=== PATIENT | female | born 1980 | race Caucasian/White ===

== ENCOUNTER 2017-04-13 15:25 | Emergency (ER) | payer BC, OTHER ==
[~2017-04-13] VITALS: Ht 160 cm; Wt 69.0 kg
[~2017-04-13 15:25] MED LIST: ALYACEN1 EACH PO; ATRALIN45 GM TP; BIOTIN10 MG PO; CALCIUM CARB1 TABLET PO; CALTRATE 6001 TABLE1 PO; CENTRUM COMPLE1 EACH PO; CENTRUM SILV1 TABLET PO; CYMBALTA60 MG PO; DESYREL100 MG PO; EPIPEN JR.0.15 MG/0. IM; KLONOPIN1 MG PO; KLONOPIN2 MG PO; LEVAQUIN750 MG PO; LORCET 5-325 M1 EACH PO; MELATONIN5 M1 PO; OXYCODONE HCL5 MG GT; OXYCODONE HCL5 MG PO; PERCOCET 5/31 TABLET PO; PROAIR HFA8.5 GM IH; PULMICORT0.5 MG/21 IH; SEROQUEL300 MG PO; SODIUM BICARBO325 MG PO; Sodium Bicarbonate PO; ULTRAM50 MG PO; XOPENEX1.25 MG/3 IH; [UNRECOGNIZED DRUG - OTHER] TP
[2017-04-13 20:40] VITALS: BP 124/80
== END 2017-04-13 20:41 | disposition home or self-care (01) ==
LOC: EME 15:25
PROC: 0D20XUZ Change Feeding Device in Upper Intestinal Tract, External Approach (ICD-10-PCS; principal; 2017-04-13)
DX: Z43.1 Encounter for attention to gastrostomy (principal); Z93.2 Ileostomy status; K21.9 Gastro-esophageal reflux disease without esophagitis; J44.9 Chronic obstructive pulmonary disease, unspecified
CPT/HCPCS: 74000; 99281; 99284; J7512

== ENCOUNTER 2017-05-30 14:58 | Emergency (ER) | payer BC, OTHER ==
[~2017-05-30] VITALS: Ht 160 cm; Wt 67.2 kg
[~2017-05-30 14:58] MED LIST changes: +CALTRATE 600 +1 EAC1 PO; +CENTRUM SILVER1 EAC4 PO; +MELATONIN10 M2 PO; +TRAZODONE HCL100 MG PO; +WELLBUTRIN SR200 MG PO
[2017-05-30 17:18] LABS: HEMATOCRIT 41.3 % (36.0-46.0); MCH 31.6 PG (29.0-34.0); MCHC 34.1 G/DL (30.0-36.0); MCV 92.6 FL (83-99); MEAN PLAT.VOLUME 8.7 uM^3 (9.5-12.4); PLATELET COUNT 214 K/uL (156-360); RBC DIS.WIDTH-CV 11.9 % (11.8-14.6); RBC DIS.WIDTH-SD 40.5 % (39-53); RED BLOOD COUNT 4.46 M/uL (3.80-5.20); WHITE BLOOD COUNT 7.9 K/uL (4.1-10.2)
[2017-05-30 17:27] LABS: CHLORIDE 104 mEq/L (99-109); POTASSIUM 4.9 mEq/L (3.7-5.4); SODIUM 138 mEq/L (136-147)
[2017-05-30 17:29] LABS: GLUCOSE 96 mg/dL (70-99)
[2017-05-30 17:30] LABS: ANION GAP 8 MEQ/L (2-14)
[2017-05-30 17:33] LABS: GFR ESTIMATE (CALCULATED) > 59 mL/min/
[2017-05-30 17:34] LABS: UREA NITROGEN (BUN) 8 mg/dL (9-23)
[2017-05-30 17:42] LABS: QUANTITATIVE HCG < 4.0 MIU/ML
[2017-05-30] MEDS ORDERED: NORCO 5/3251 TABLET PO (18:37)
[2017-05-30] MEDS ORDERED: KEFLEX500 MG PO (18:37)
[2017-05-30 19:36] VITALS: BP 121/85
== END 2017-05-30 19:37 | disposition home or self-care (01) ==
LOC: EME 14:58
PROVIDERS: Nurse Practitioner Family
DX: L03.311 Cellulitis of abdominal wall (principal); K94.22 Gastrostomy infection; J44.9 Chronic obstructive pulmonary disease, unspecified; K21.9 Gastro-esophageal reflux disease without esophagitis; Q87.2 Congenital malformation syndromes predominantly involving limbs; Z93.2 Ileostomy status
CPT/HCPCS: 74000; 80048; 83605; 84702; 85027; 99281; 99285

== ENCOUNTER → 2017-06-01 | Outpatient (CLI) | payer BC, OTHER ==
[~2017-06-01] MED LIST changes: +KEFLEX500 MG PO; +NORCO 5/3251 TABLET PO
== END | disposition home or self-care (01) ==
LOC: RAD 14:57
PROC: 0DH67UZ Insertion of Feeding Device into Stomach, Via Natural or Artificial Opening (ICD-10-PCS; principal; 2017-06-01)
DX: K94.23 Gastrostomy malfunction (principal)
CPT/HCPCS: 74176; C1769

== ENCOUNTER → 2017-06-17 | Outpatient (CLI) | payer BC, OTHER | END | disposition home or self-care (01) | LOC: RAD 13:33 | PROC: 0DH87UZ Insertion of Feeding Device into Small Intestine, Via Natural or Artificial Opening (ICD-10-PCS; principal; 2017-06-17) | DX: K94.20 Gastrostomy complication, unspecified (principal) | CPT/HCPCS: C1769 ==

== ENCOUNTER 2017-10-05 17:20 | Emergency (ER) | payer BC, OTHER ==
[~2017-10-05] VITALS: Ht 160 cm; Wt 75.7 kg
[2017-10-05 18:26] LABS: HEMATOCRIT 38.3 % (36.0-46.0); HEMOGLOBIN 13.1 G/DL (11.9-15.5); MCH 31.6 PG (29.0-34.0); MCHC 34.2 G/DL (30.0-36.0); MCV 92.3 FL (83-99); PLATELET COUNT 262 K/uL (156-360); RBC DIS.WIDTH-CV 11.5 % (11.8-14.6); RBC DIS.WIDTH-SD 38.9 % (39-53); RED BLOOD COUNT 4.15 M/uL (3.80-5.20); WHITE BLOOD COUNT 8.3 K/uL (4.1-10.2)
[2017-10-05 18:37] LABS: ALBUMIN 4.1 g/dL (3.2-4.8); CHLORIDE 103 mEq/L (99-109); SODIUM 136 mEq/L (136-147)
[2017-10-05 18:39] LABS: GLUCOSE 94 mg/dL (70-99)
[2017-10-05 18:40] LABS: TOTAL PROTEIN 7.3 g/dL (6.4-8.3)
[2017-10-05 18:41] LABS: TOTAL BILIRUBIN 0.4 mg/dL (0.0-1.0)
[2017-10-05 18:43] LABS: ALKALINE PHOSPHATASE 89 IU/L (3-129); CREATININE 0.7 mg/dL (0.6-1.3); GFR ESTIMATE (CALCULATED) > 59 mL/min/
[2017-10-05 18:44] LABS: UREA NITROGEN (BUN) 10 mg/dL (9-23)
[2017-10-05 18:45] LABS: AST (GOT) 18 IU/L (2-34); DIRECT BILIRUBIN 0.2 mg/dL (0.0-0.3)
[2017-10-05 18:46] LABS: ALT (GPT) 7 IU/L (3-49); LIPASE 76 U/L (1.0-51.0)
[2017-10-06 00:18] VITALS: BP 135/92
== END 2017-10-06 00:19 | disposition home or self-care (01) ==
LOC: EME 17:20
PROVIDERS: Emergency Medicine
DX: R10.84 Generalized abdominal pain (principal); K94.09 Other complications of colostomy; Q87.2 Congenital malformation syndromes predominantly involving limbs; J44.9 Chronic obstructive pulmonary disease, unspecified; K21.9 Gastro-esophageal reflux disease without esophagitis; F32.9 Major depressive disorder, single episode, unspecified; F41.9 Anxiety disorder, unspecified; Z91.040 Latex allergy status
CPT/HCPCS: 74176; 80048; 80076; 83690; 85027; 99281; 99285; J2270; J2405

== ENCOUNTER → 2017-10-16 | Outpatient (CLI) | payer BC, OTHER ==
[~2017-10-16] MED LIST changes: +MYRBETRIQ25 MG PO; +TRAZODONE HCL50 MG PO
[2017-10-16 12:28] LABS: INTER. NORMALIZED RATIO 0.9
[2017-10-16 12:31] LABS: PTT 29.5 SEC (25-37)
== END | disposition home or self-care (01) ==
LOC: OPR 11:32 → EDSTATUS 12:00 → OPR 12:00
PROVIDERS: Physician Assistant
PROC: 0W9G30Z Drainage of Peritoneal Cavity with Drainage Device, Percutaneous Approach (ICD-10-PCS; principal; 2017-10-16)
DX: R18.8 Other ascites (principal); Q87.2 Congenital malformation syndromes predominantly involving limbs; K94.09 Other complications of colostomy; F41.1 Generalized anxiety disorder; J44.9 Chronic obstructive pulmonary disease, unspecified; F32.9 Major depressive disorder, single episode, unspecified; Z91.040 Latex allergy status; Z82.49 Family history of ischemic heart disease and other diseases of the circulatory system; Z84.1 Family history of disorders of kidney and ureter; Z88.8 Allergy status to other drugs, medicaments and biological substances
CPT/HCPCS: 49406; 85610; 85730; 87070; 87075; 87205; C1769; J3010

== ENCOUNTER 2017-11-25 05:44 | Day surgery (SDC) | payer BC, OTHER ==
[~2017-11-25] VITALS: Ht 160 cm; Wt 74.3 kg
[~2017-11-25 05:44] MED LIST changes: -CENTRUM SILVER1 EAC4 PO; +CENTRUM WOMEN1 EACH PO; +DULCOLAX5 MG PO; +MELATONIN10 M4 SL; +NUTREN 1.5250 ML GT; +SYSTANE ULTRA 015 ML BOTH EYES
[2017-11-25 06:48] VITALS: BP 115/75
[2017-11-25 08:36] LABS: PTT 27.5 SEC (25-37)
[2017-11-25] MEDS ORDERED: NORCO 5/3251 TABLET PO (10:09)
[2017-11-25 16:13] VITALS: BP 145/69
[2017-11-26 00:01] VITALS: BP 130/85
[2017-11-26 07:41] VITALS: BP 117/68
[2017-11-26 15:58] VITALS: BP 121/66
[2017-11-26 23:52] VITALS: BP 117/74
[2017-11-27 06:49] VITALS: BP 102/587; BP 102/87
== END 2017-11-27 13:50 | disposition home or self-care (01) ==
LOC: SDC 05:44 → 5EAST 10:10 → 2SOUTH 10:10 → ENRESERV 10:10 → 2SOUTH 10:10 → ENRESERV 13:38 → CANRESERV 13:38 → ENRESERV 13:57 → SDC 14:19 → 5EAST 14:48 → ENPENDDIS 11-27 → 5EAST 11-27 13:50
PROVIDERS: Surgery
DX: K80.10 Calculus of gallbladder with chronic cholecystitis without obstruction (principal); K66.0 Peritoneal adhesions (postprocedural) (postinfection); Q87.2 Congenital malformation syndromes predominantly involving limbs; Z93.3 Colostomy status; J44.9 Chronic obstructive pulmonary disease, unspecified; Z45.2 Encounter for adjustment and management of vascular access device; F32.9 Major depressive disorder, single episode, unspecified; F41.1 Generalized anxiety disorder; Z88.8 Allergy status to other drugs, medicaments and biological substances; Z91.040 Latex allergy status
CPT/HCPCS: 71046; 74300; 85610; 85730; 86850; 86900; 86901; 86920; 88304; 94640; 94640 76; 94799; 99202; G0378; J0330; J1100; J1170; J1885; J2001; J2250; J2405; J2710; J3010; J3475; Q0175; S0020; S0074

== ENCOUNTER 2017-12-08 19:10 | Inpatient (IN) | payer BC, OTHER ==
[~2017-12-08] VITALS: Ht 160 cm; Wt 74.1 kg
[2017-12-08 20:01] LABS: BASOPHIL (%) 0.8 % (0-1); BASOPHIL COUNT 0.1 K/uL (0-0.1); EOSINOPHIL (%) 0.7 % (0-5); EOSINOPHIL COUNT 0.1 K/uL (0-0.3); HEMATOCRIT 32.5 % (36.0-46.0); HEMOGLOBIN 11.7 G/DL (11.9-15.5); IMMATURE GRANULOCYTE (%) 0.3 % (0.0-0.7); LYMPHOCYTE (%) 14.8 % (15-42); LYMPHOCYTE COUNT 1.4 K/uL (1.0-2.8); MCH 31.6 PG (29.0-34.0); MCV 87.8 FL (83-99); MONOCYTE (%) 7.4 % (3-12); MONOCYTE COUNT 0.7 K/uL (0-0.8); PLATELET COUNT 344 K/uL (156-360); RBC DIS.WIDTH-CV 12.4 % (11.8-14.6); RBC DIS.WIDTH-SD 40.2 % (39-53); WHITE BLOOD COUNT 9.2 K/uL (4.1-10.2)
[2017-12-08 20:17] LABS: APPEARANCE CLEAR ((CLEAR)); BILIRUBIN NEGATIVE; BLOOD NEGATIVE; COLOR YELLOW ((YELLOW)); GLUCOSE (STRIP) NEGATIVE; KETONES NEGATIVE; LEUKOCYTES NEGATIVE; NITRITE NEGATIVE; PROTEIN (STRIP) 30; UCUL ADDED? NO; UROBILINOGEN 0.2 MG/DL (0.2-1.0)
[2017-12-08 20:39] LABS: ALBUMIN 3.8 g/dL (3.2-4.8); CHLORIDE 98 mEq/L (99-109); POTASSIUM 3.7 mEq/L (3.7-5.4); SODIUM 135 mEq/L (136-147)
[2017-12-08 20:40] LABS: MAGNESIUM 1.1 mg/dL (1.3-2.7)
[2017-12-08 20:41] LABS: GLUCOSE 101 mg/dL (70-99); TOTAL PROTEIN 6.4 g/dL (6.4-8.3)
[2017-12-08 20:43] LABS: TOTAL BILIRUBIN 0.6 mg/dL (0.0-1.0)
[2017-12-08 20:45] LABS: ALKALINE PHOSPHATASE 100 IU/L (3-129); CREATININE 0.7 mg/dL (0.6-1.3); GFR ESTIMATE (CALCULATED) > 59 mL/min/
[2017-12-08 20:46] LABS: UREA NITROGEN (BUN) 6 mg/dL (9-23)
[2017-12-08 20:47] LABS: AST (GOT) 17 IU/L (2-34)
[2017-12-08 20:48] LABS: ALT (GPT) 9 IU/L (3-49); LIPASE 11 U/L (1.0-51.0)
[2017-12-09 07:21] LABS: HEMATOCRIT 30.8 % (36.0-46.0); HEMOGLOBIN 10.7 G/DL (11.9-15.5); MCH 31.2 PG (29.0-34.0); MCHC 34.7 G/DL (30.0-36.0); MCV 89.8 FL (83-99); PLATELET COUNT 292 K/uL (156-360); RBC DIS.WIDTH-CV 12.7 % (11.8-14.6); RBC DIS.WIDTH-SD 41.4 % (39-53); RED BLOOD COUNT 3.43 M/uL (3.80-5.20); WHITE BLOOD COUNT 6.3 K/uL (4.1-10.2)
[2017-12-09 08:42] LABS: ALBUMIN 3.4 G/DL (3.2-4.8); ALKALINE PHOSPHATASE 112 IU/L (3-129); ALT (GPT) 76 IU/L (3-49); AST (GOT) 287 IU/L (2-34); CHLORIDE 102 MEQ/L (99-109); CREATININE 0.5 MG/DL (0.6-1.3); GFR ESTIMATE (CALCULATED) > 59 mL/min/; GLUCOSE 115 mg/dL (70-99); MAGNESIUM 1.5 mg/dl (1.3-2.7); PHOSPHORUS 2.6 mg/dL (2.5-4.9); POTASSIUM 3.6 MEQ/L (3.7-5.4); SODIUM 135 MEQ/L (136-147); TOTAL BILIRUBIN 1.1 MG/DL (0.0-1.0); TOTAL PROTEIN 5.3 G/DL (6.4-8.3); UREA NITROGEN (BUN) 5 mg/dL (9-23)
[2017-12-09 16:51] VITALS: BP 156/87
[2017-12-09 16:54] VITALS: BP 150/77
[2017-12-09 23:30] VITALS: BP 140/80
[2017-12-10 09:29] VITALS: BP 111/72
[2017-12-10 16:36] VITALS: BP 131/82
[2017-12-11 00:18] VITALS: BP 132/82
[2017-12-11 07:00] VITALS: BP 140/97
[2017-12-11 09:19] VITALS: BP 140/97
[2017-12-11] MEDS ORDERED: NORCO 5/3251 TABLET PO (10:43)
== END 2017-12-11 13:25 | disposition home or self-care (01) | DRG 389 ==
LOC: EME 19:10 → EDOF 22:27 → ENRESERV 22:28 → 5EAST 12-09 15:53 → ENPENDDIS 12-11 → 5EAST 12-11 13:25
PROVIDERS: Emergency Medicine; Surgery
DX: K56.600 Partial intestinal obstruction, unspecified as to cause (principal); K56.7 Ileus, unspecified; J44.9 Chronic obstructive pulmonary disease, unspecified; Z93.3 Colostomy status; Z93.1 Gastrostomy status; K21.9 Gastro-esophageal reflux disease without esophagitis; G43.909 Migraine, unspecified, not intractable, without status migrainosus; D64.9 Anemia, unspecified; F32.9 Major depressive disorder, single episode, unspecified; F41.9 Anxiety disorder, unspecified; Q87.2 Congenital malformation syndromes predominantly involving limbs
CPT/HCPCS: 74018; 74176; 80053; 81003; 83690; 83735; 84100; 85025; 85027; 94640 76; 99202; 99281; 99285; J1170; J1630; J1650; J2270; J2405; J3475; J7040

== ENCOUNTER 2017-12-27 19:38 | Inpatient (IN) | payer BC, OTHER ==
[~2017-12-27] VITALS: Ht 160 cm; Wt 87.5 kg
[2017-12-27 20:03] LABS: HEMATOCRIT 33.8 % (36.0-46.0); HEMOGLOBIN 11.8 G/DL (11.9-15.5); MCH 31.7 PG (29.0-34.0); MCHC 34.9 G/DL (30.0-36.0); MCV 90.9 FL (83-99); PLATELET COUNT 212 K/uL (156-360); RBC DIS.WIDTH-CV 13.6 % (11.8-14.6); RBC DIS.WIDTH-SD 45.3 % (39-53); RED BLOOD COUNT 3.72 M/uL (3.80-5.20); WHITE BLOOD COUNT 6.7 K/uL (4.1-10.2)
[2017-12-27 20:15] LABS: ALBUMIN 4.2 g/dL (3.2-4.8); CHLORIDE 99 mEq/L (99-109); POTASSIUM 4.3 mEq/L (3.7-5.4); SODIUM 136 mEq/L (136-147)
[2017-12-27 20:17] LABS: GLUCOSE 92 mg/dL (70-99)
[2017-12-27 20:19] LABS: TOTAL BILIRUBIN 0.8 mg/dL (0.0-1.0)
[2017-12-27 20:21] LABS: ALKALINE PHOSPHATASE 102 IU/L (3-129); CREATININE 0.8 mg/dL (0.6-1.3); GFR ESTIMATE (CALCULATED) > 59 mL/min/
[2017-12-27 20:22] LABS: UREA NITROGEN (BUN) 7 mg/dL (9-23)
[2017-12-27 20:23] LABS: AST (GOT) 19 IU/L (2-34)
[2017-12-27 20:24] LABS: ALT (GPT) 7 IU/L (3-49)
[2017-12-27 20:32] LABS: QUANTITATIVE HCG < 4.0 MIU/ML
[2017-12-27 22:44] LABS: APPEARANCE SL.HAZY ((CLEAR)); BILIRUBIN NEGATIVE; BLOOD SMALL; COLOR YELLOW ((YELLOW)); GLUCOSE (STRIP) NEGATIVE; KETONES NEGATIVE; LEUKOCYTES TRACE; NITRITE NEGATIVE; PROTEIN (STRIP) NEGATIVE; SPECIFIC GRAVITY 1.014 (1.000-1.030); UROBILINOGEN 0.2 MG/DL (0.2-1.0)
[2017-12-27 22:45] LABS: BACTERIA RARE /HPF; EPITHELIAL CELLS RARE /HPF; MUCUS TRACE /LPF; RED BLOOD CELLS 0-5 /HPF (0-5); UCUL ADDED? NO; WHITE BLOOD CELLS 0-5 /HPF (0-5)
[2017-12-28 08:08] VITALS: BP 141/92
[2017-12-28 11:10] VITALS: BP 159/99
[2017-12-28] MEDS ORDERED: DULCOLAX5 MG PO (11:24)
[2017-12-28] MEDS ORDERED: ZUPLENZ4 MG PO (11:31)
[2017-12-28] MEDS ORDERED: PROTONIX40 MG PO (11:31)
[2017-12-28] MEDS ORDERED: VENTOLIN HFA18 GM IH (11:32)
[2017-12-28] MEDS ORDERED: CYMBALTA60 MG PO (11:33)
[2017-12-28 12:49] VITALS: BP 145/95
[2017-12-28 15:33] VITALS: BP 162/100
[2017-12-28 19:10] VITALS: BP 169/104
[2017-12-28 22:23] LABS: HEMATOCRIT 30.2 % (36.0-46.0); HEMOGLOBIN 10.4 G/DL (11.9-15.5); MCH 31.9 PG (29.0-34.0); MCHC 34.4 G/DL (30.0-36.0); MCV 92.6 FL (83-99); PLATELET COUNT 178 K/uL (156-360); RBC DIS.WIDTH-CV 14.1 % (11.8-14.6); RBC DIS.WIDTH-SD 47.8 % (39-53); RED BLOOD COUNT 3.26 M/uL (3.80-5.20); WHITE BLOOD COUNT 4.9 K/uL (4.1-10.2)
[2017-12-29] VITALS (8 sets, daily range): BP systolic 123–163; BP diastolic 79–108
[2017-12-29 06:38] LABS: HEMATOCRIT 31.4 % (36.0-46.0); HEMOGLOBIN 10.3 G/DL (11.9-15.5); MCH 31.1 PG (29.0-34.0); MCHC 32.8 G/DL (30.0-36.0); MCV 94.9 FL (83-99); PLATELET COUNT 163 K/uL (156-360); RBC DIS.WIDTH-CV 14.6 % (11.8-14.6); RBC DIS.WIDTH-SD 49.5 % (39-53); RED BLOOD COUNT 3.31 M/uL (3.80-5.20); WHITE BLOOD COUNT 3.6 K/uL (4.1-10.2)
[2017-12-29 07:03] LABS: CHLORIDE 107 MEQ/L (99-109); CREATININE 0.7 MG/DL (0.6-1.3); GFR ESTIMATE (CALCULATED) > 59 mL/min/; GLUCOSE 86 mg/dL (70-99); SODIUM 140 MEQ/L (136-147); UREA NITROGEN (BUN) 2 mg/dL (9-23)
[2017-12-29 07:10] LABS: POTASSIUM 3.3 MEQ/L (3.7-5.4)
[2017-12-30 06:41] LABS: CHLORIDE 108 MEQ/L (99-109); CREATININE 0.7 MG/DL (0.6-1.3); GFR ESTIMATE (CALCULATED) > 59 mL/min/; GLUCOSE 85 mg/dL (70-99); SODIUM 141 MEQ/L (136-147); UREA NITROGEN (BUN) 3 mg/dL (9-23)
[2017-12-30 06:44] LABS: POTASSIUM 4.1 MEQ/L (3.7-5.4)
[2017-12-30 07:44] VITALS: BP 139/94
[2017-12-30 11:08] VITALS: BP 147/89
[2017-12-30 16:21] VITALS: BP 145/105
[2017-12-30 19:31] VITALS: BP 131/81
[2017-12-31 00:46] VITALS: BP 147/96
[2017-12-31 07:51] VITALS: BP 139/95
[2017-12-31 12:07] VITALS: BP 156/97
[2017-12-31 19:50] VITALS: BP 122/77
[2018-01-01 00:08] VITALS: BP 107/66
[2018-01-01 04:02] VITALS: BP 121/78
[2018-01-01 07:09] VITALS: BP 133/84
[2018-01-01 09:52] LABS: HEMOGLOBIN 9.7 G/DL (11.9-15.5); MCH 31.9 PG (29.0-34.0); MCHC 32.3 G/DL (30.0-36.0); MCV 98.7 FL (83-99); PLATELET COUNT 153 K/uL (156-360); RBC DIS.WIDTH-CV 15.8 % (11.8-14.6); RBC DIS.WIDTH-SD 56.8 % (39-53); RED BLOOD COUNT 3.04 M/uL (3.80-5.20); WHITE BLOOD COUNT 7.7 K/uL (4.1-10.2)
[2018-01-01 10:26] LABS: CHLORIDE 102 MEQ/L (99-109); CREATININE 0.8 MG/DL (0.6-1.3); GFR ESTIMATE (CALCULATED) > 59 mL/min/; POTASSIUM 3.3 MEQ/L (3.7-5.4); SODIUM 138 MEQ/L (136-147); UREA NITROGEN (BUN) 4 mg/dL (9-23)
[2018-01-01 10:27] LABS: GLUCOSE 138 mg/dL (70-99)
[2018-01-01 11:11] VITALS: BP 145/84
[2018-01-01 16:56] VITALS: BP 137/86
[2018-01-01 20:04] VITALS: BP 126/76
[2018-01-02] VITALS (7 sets, daily range): BP systolic 113–140; BP diastolic 65–86
[2018-01-02 06:30] LABS: BASOPHIL (%) 0.4 % (0-1); EOSINOPHIL (%) 6.9 % (0-5); EOSINOPHIL COUNT 0.4 K/uL (0-0.3); HEMATOCRIT 26.7 % (36.0-46.0); HEMOGLOBIN 8.6 G/DL (11.9-15.5); IMMATURE GRANULOCYTE (%) 0.4 % (0.0-0.7); LYMPHOCYTE (%) 17.9 % (15-42); MCH 31.4 PG (29.0-34.0); MCHC 32.2 G/DL (30.0-36.0); MCV 97.4 FL (83-99); MONOCYTE (%) 15.3 % (3-12); MONOCYTE COUNT 0.8 K/uL (0-0.8); NEUTROPHIL (%) 59.1 % (45-76); NEUTROPHIL COUNT 3.2 K/uL (1.8-6.4); PLATELET COUNT 150 K/uL (156-360); RBC DIS.WIDTH-CV 15.4 % (11.8-14.6); RBC DIS.WIDTH-SD 54.6 % (39-53); RED BLOOD COUNT 2.74 M/uL (3.80-5.20); WHITE BLOOD COUNT 5.5 K/uL (4.1-10.2)
[2018-01-02 07:03] LABS: CHLORIDE 106 MEQ/L (99-109); CREATININE 0.5 MG/DL (0.6-1.3); GFR ESTIMATE (CALCULATED) > 59 mL/min/; POTASSIUM 3.6 MEQ/L (3.7-5.4); SODIUM 140 MEQ/L (136-147)
[2018-01-02 07:09] LABS: GLUCOSE 87 mg/dL (70-99); UREA NITROGEN (BUN) < 2 mg/dL (9-23)
[2018-01-03 04:08] VITALS: BP 109/60
[2018-01-03 06:57] LABS: BASOPHIL (%) 0.4 % (0-1); EOSINOPHIL COUNT 0.4 K/uL (0-0.3); IMMATURE GRANULOCYTE (%) 0.2 % (0.0-0.7); LYMPHOCYTE (%) 25.1 % (15-42); LYMPHOCYTE COUNT 1.2 K/uL (1.0-2.8); MCHC 33.3 G/DL (30.0-36.0); MCV 96.1 FL (83-99); MONOCYTE (%) 16.8 % (3-12); MONOCYTE COUNT 0.8 K/uL (0-0.8); NEUTROPHIL (%) 49.5 % (45-76); NEUTROPHIL COUNT 2.4 K/uL (1.8-6.4); PLATELET COUNT 183 K/uL (156-360); RBC DIS.WIDTH-CV 15.1 % (11.8-14.6); RED BLOOD COUNT 2.81 M/uL (3.80-5.20); WHITE BLOOD COUNT 4.9 K/uL (4.1-10.2)
[2018-01-03 07:23] LABS: CHLORIDE 100 MEQ/L (99-109); CREATININE 0.6 MG/DL (0.6-1.3); GFR ESTIMATE (CALCULATED) > 59 mL/min/; GLUCOSE 90 mg/dL (70-99); POTASSIUM 3.6 MEQ/L (3.7-5.4); SODIUM 139 MEQ/L (136-147)
[2018-01-03 07:24] VITALS: BP 117/74
[2018-01-03 07:29] LABS: UREA NITROGEN (BUN) < 2 mg/dL (9-23)
[2018-01-03 15:58] VITALS: BP 112/64
[2018-01-04 00:25] VITALS: BP 98/57
[2018-01-04 06:11] LABS: BASOPHIL (%) 0.7 % (0-1); EOSINOPHIL (%) 7.2 % (0-5); EOSINOPHIL COUNT 0.4 K/uL (0-0.3); HEMATOCRIT 28.5 % (36.0-46.0); HEMOGLOBIN 9.1 G/DL (11.9-15.5); IMMATURE GRANULOCYTE (%) 0.5 % (0.0-0.7); LYMPHOCYTE (%) 22.7 % (15-42); LYMPHOCYTE COUNT 1.4 K/uL (1.0-2.8); MCH 30.5 PG (29.0-34.0); MCHC 31.9 G/DL (30.0-36.0); MCV 95.6 FL (83-99); MONOCYTE COUNT 0.8 K/uL (0-0.8); NEUTROPHIL (%) 54.9 % (45-76); NEUTROPHIL COUNT 3.3 K/uL (1.8-6.4); PLATELET COUNT 211 K/uL (156-360); RBC DIS.WIDTH-CV 14.8 % (11.8-14.6); RBC DIS.WIDTH-SD 51.7 % (39-53); RED BLOOD COUNT 2.98 M/uL (3.80-5.20); WHITE BLOOD COUNT 5.9 K/uL (4.1-10.2)
[2018-01-04 06:43] LABS: CHLORIDE 100 MEQ/L (99-109); CREATININE 0.7 MG/DL (0.6-1.3); GFR ESTIMATE (CALCULATED) > 59 mL/min/; GLUCOSE 99 mg/dL (70-99); POTASSIUM 3.9 MEQ/L (3.7-5.4); SODIUM 141 MEQ/L (136-147); UREA NITROGEN (BUN) 3 mg/dL (9-23)
[2018-01-04 07:42] VITALS: BP 107/63
[2018-01-04 15:46] VITALS: BP 107/65
[2018-01-05 00:25] VITALS: BP 96/50
[2018-01-05 06:08] LABS: HEMATOCRIT 29.8 % (36.0-46.0); HEMOGLOBIN 9.7 G/DL (11.9-15.5); MCH 31.5 PG (29.0-34.0); MCHC 32.6 G/DL (30.0-36.0); MCV 96.8 FL (83-99); PLATELET COUNT 232 K/uL (156-360); RBC DIS.WIDTH-CV 14.4 % (11.8-14.6); RBC DIS.WIDTH-SD 50.6 % (39-53); RED BLOOD COUNT 3.08 M/uL (3.80-5.20); WHITE BLOOD COUNT 5.8 K/uL (4.1-10.2)
[2018-01-05 06:27] LABS: CHLORIDE 97 MEQ/L (99-109); CREATININE 0.7 MG/DL (0.6-1.3); GFR ESTIMATE (CALCULATED) > 59 mL/min/; GLUCOSE 89 mg/dL (70-99); POTASSIUM 4.1 MEQ/L (3.7-5.4); SODIUM 136 MEQ/L (136-147); UREA NITROGEN (BUN) 6 mg/dL (9-23)
[2018-01-05 07:32] VITALS: BP 109/67
[2018-01-05] MEDS ORDERED: LEVOFLOXACIN500 MG PO (09:33)
[2018-01-05] MEDS ORDERED: NORCO 5/3251 TABLET PO (11:33)
== END 2018-01-05 13:41 | disposition home health service (06) | DRG 329 ==
LOC: EME 19:38 → EXP 19:38 → 5WEST 12-28 04:35 → EDOF 12-28 04:35 → ENRESERV 12-28 04:37 → 5WEST 12-28 07:51 → ENRESERV 12-31 15:15 → 2EASTP 12-31 19:20 → ENRESERV 01-01 11:27 → 2EAST 01-01 12:14
PROVIDERS: Hospitalist; Internal Medicine; Physician Assistant; Surgery
PROC: 0D1L0Z4 Bypass Transverse Colon to Cutaneous, Open Approach (ICD-10-PCS; principal; 2017-12-31)
DX: K94.09 Other complications of colostomy (principal); J15.9 Unspecified bacterial pneumonia; K68.9 Other disorders of retroperitoneum; J96.01 Acute respiratory failure with hypoxia; K43.3 Parastomal hernia with obstruction, without gangrene; Q42.1 Congenital absence, atresia and stenosis of rectum without fistula; Q39.8 Other congenital malformations of esophagus; Q32.1 Other congenital malformations of trachea; R18.8 Other ascites; N39.0 Urinary tract infection, site not specified; F33.9 Major depressive disorder, recurrent, unspecified; Q87.2 Congenital malformation syndromes predominantly involving limbs; R10.0 Acute abdomen; Y83.3 Surgical operation with formation of external stoma as the cause of abnormal reaction of the patient, or of later complication, without mention of misadventure at the time of the procedure; Y73.2 Prosthetic and other implants, materials and accessory gastroenterology and urology devices associated with adverse incidents; Z90.49 Acquired absence of other specified parts of digestive tract; D64.9 Anemia, unspecified; E87.6 Hypokalemia; F41.9 Anxiety disorder, unspecified; J45.909 Unspecified asthma, uncomplicated; N28.1 Cyst of kidney, acquired; Z87.01 Personal history of pneumonia (recurrent); Z91.040 Latex allergy status; Y92.89 Other specified places as the place of occurrence of the external cause
CPT/HCPCS: 71045; 74176; 74181; 80048; 80053; 81003; 84702; 85025; 85027; 86609 90; 86850; 86900; 86901; 87449; 88302; 94640; 94640 76; 94760; 94799; 99202; 99281; 99284; G0378; J0131; J0360; J0696; J1170; J1335; J1644; J1885; J2060; J2250; J2405; J2550; J2710; J3010; J3480; J7030; J7050; J7120; J7643